=== PATIENT | female | born 1945 | race Caucasian/White ===

== ENCOUNTER → 2017-07-12 | Outpatient (CLI) | payer MEDICARE, MEDICAID ==
[~2017-07-12] MED LIST: ATENOLOL100 MG PO; CHOLESTYRAMINE1 POW PO; CITALOPRAM40 MG PO; CLARITIN 10MG T10 MG PO; DIAZEPAM10 MG PO; FIORICET 325 MG1 TAB PO; IMODIUM A-D2 MG PO; KEFLEX500 M1 PO; LISINOPRIL40 MG PO; MECLIZINE HYDRO25 MG PO; NORVASC 5MG. TAB5 MG PO; REGLAN 10 MG TA10 MG PO; ZANTAC 150150 MG PO
[2017-07-12 07:40] LABS: HEMOGLOBIN 12.2 g/dL (12.2-16.2); LYMPH # 1.9 K/mm3 (0.7-4.5); LYMPH % 32.5 % (10-50.0)
[2017-07-12 09:33] LABS: BUN 18 mg/dL (7-18)
[2017-07-12 09:34] LABS: GFR (ESTIMATED) 44 ML/MIN (59-)
== END ==
LOC: LAB 07:06
PROVIDERS: Internal Medicine
DX: C50.919 Malignant neoplasm of unspecified site of unspecified female breast (principal); Z79.899 Other long term (current) drug therapy

== ENCOUNTER → 2017-07-25 | Outpatient (CLI) | payer MEDICARE, MEDICAID ==
[~2017-07-25] MED LIST changes: +PROTONIX 40MG T40 MG PO
--- NOTE | 2017-07-25 11:16 | RADIOLOGY REPORT PS360 ---
BONE DENSITOMETRY(HIP:LT SPINE HISTORY: BREAST CA, POST MENOPAUSAL ORDERING PHYSICIAN: Ja Ceron MD PATIENT AGE: 71 years COMPARISON: None FINDINGS: The BMD measured at the Right femur is 0.75 g/cm squared with a T score of -2.2. This is considered Osteopenic according to the World Health Organization criteria. Fracture risk is Moderate. Treatment is advised. IMPRESSION: Osteopenia. Recommend follow-up exam July 2019
== END ==
LOC: RAD 09:37
DX: Z78.0 Asymptomatic menopausal state (principal); Z13.820 Encounter for screening for osteoporosis; C50.912 Malignant neoplasm of unspecified site of left female breast